=== PATIENT | female | born 1995 | race Two or more races ===

== ENCOUNTER 2021-04-18 15:36 | Emergency (ER) | payer BC, OTHER ==
[~2021-04-18] VITALS: Ht 162.6 cm; Wt 59.0 kg
[2021-04-18 15:40] VITALS: BP 120/76
== END 2021-04-18 17:38 | disposition home or self-care (01) ==
LOC: ER 15:45
DX: M54.2 Cervicalgia (principal); M62.838 Other muscle spasm; V49.9XXD Car occupant (driver) (passenger) injured in unspecified traffic accident, subsequent encounter
CPT/HCPCS: 72040; 73030

== ENCOUNTER 2023-02-05 16:05 | Observation (INO) | payer BC | END 2023-02-05 18:14 | disposition home or self-care (01) | LOC: UNDOADMOB 16:05 → LDRP 16:05 | PROVIDERS: ADMIT Obstetrics & Gynecology; ATTEND Obstetrics & Gynecology | DX: O42.912 Preterm premature rupture of membranes, unspecified as to length of time between rupture and onset of labor, second trimester (principal); O26.892 Other specified pregnancy related conditions, second trimester; N89.8 Other specified noninflammatory disorders of vagina; Z3A.20 20 weeks gestation of pregnancy | CPT/HCPCS: 59025; 76815; 81002; 84112; 94760; G0378; Q0114 ==

== ENCOUNTER 2023-04-26 09:14 | Observation (INO) | payer BC ==
[~2023-04-26] VITALS: Ht 162.6 cm; Wt 67.1 kg
[2023-04-26] MEDS ORDERED: TERBUTALINE SULFATE 1 MG/ML 1ML VIAL SC ONE (10:04)
[2023-04-26] MEDS: TERBUTALINE SULFATE 1 MG/ML 1ML VIAL SC SCH ×2 (11:31→11:32)
== END 2023-04-26 11:30 | disposition home or self-care (01) ==
LOC: UNDOADMOB 09:14 → LDRP 09:14 → UNDODISOB 11:30
PROVIDERS: ADMIT Obstetrics & Gynecology; ATTEND Obstetrics & Gynecology
DX: O62.9 Abnormality of forces of labor, unspecified (principal); O60.03 Preterm labor without delivery, third trimester; O26.893 Other specified pregnancy related conditions, third trimester; R10.30 Lower abdominal pain, unspecified; Z3A.31 31 weeks gestation of pregnancy
CPT/HCPCS: 59025; 81002; 94760; 96372; G0378; J3105

== ENCOUNTER 2023-05-28 11:34 | Observation (INO) | payer MEDICAID ==
[2023-05-28] MEDS ORDERED: TERBUTALINE SULFATE 1 MG/ML 1ML VIAL SC SCH (12:45)
== END 2023-05-28 13:08 | disposition home or self-care (01) ==
LOC: LDRP 11:34
PROVIDERS: ADMIT Obstetrics & Gynecology; ATTEND Obstetrics & Gynecology
DX: O62.9 Abnormality of forces of labor, unspecified (principal); O99.283 Endocrine, nutritional and metabolic diseases complicating pregnancy, third trimester; E03.9 Hypothyroidism, unspecified; Z3A.36 36 weeks gestation of pregnancy
CPT/HCPCS: 59025; 76818; 81002; 94760; G0378